=== PATIENT | female | born 1970 | race Caucasian/White ===

== ENCOUNTER 2017-08-04 20:43 | Emergency (ER) | payer MEDICAID, OTHER ==
[~2017-08-04] VITALS: Ht 162.6 cm; Wt 93.5 kg
[~2017-08-04 20:43] MED LIST: HYDR-902 PO; HYDR-906 PO; IBUP-1542 PO
[2017-08-04 21:44] VITALS: Ht 162.6 cm; Wt 93.5 kg
[2017-08-04 23:04] VITALS: BP 173/109
[2017-08-05] MEDS ORDERED: HYDROCODONE/APAP (10/325) TAB PO ONE
--- NOTE | 2017-08-05 00:55 | ERD ---
ER Documentation Chief Complaint Date/Time DATE: 08/05/17 TIME: 00:54 Chief Complaint L foot pain since Friday; last week pt stepped on grnddtr's toy HPI 46-year-old female with left foot pain since Friday. She said she stepped on her granddaughter's toy sick 5 days ago. Foot pain is getting progressively worse. Denies any direct trauma. Complains of pain in her heel and her plantar area. Pain is mild to moderate in intensity with no exacerbating or alleviating factors other than movement and rest. ROS All systems reviewed and are negative except as per history of present illness. Medications Home Meds Active Scripts Hydrocodone/Acetaminophen ([place] 5-325 Tablet) 1 Each Tablet, 1 TAB PO Q6H Y for PAIN, #7 TAB Prov:CLARI WALKER MD 08/24/16 Hydrocodone/Acetaminophen ([place] 10-325 Tablet) 1 Each Tablet, 1 TAB PO Q6H Y for PAIN, #7 TAB Prov:CLARI WALKER MD 08/24/16 Ibuprofen* (Motrin*) 600 Mg Tab, 600 MG PO Q6H Y for PAIN AND OR ELEVATED TEMP, #30 TAB Prov:CLARI WALKER MD 08/24/16 Reported Medications [None] No Conflict Check 11/12/10 Allergies Allergies: Coded Allergies: morphine (Verified Allergy, Mild, SHORTNESS OF BREATHE, 09/08/11) PMhx/Soc Medical and Surgical Hx: pt denies Medical Hx History of Surgery: Yes (GALLBLADDER) Anesthesia Reaction: No Hx Neurological Disorder: No Hx Respiratory Disorders: No Hx Cardiac Disorders: No Hx Psychiatric Problems: No Hx Miscellaneous Medical Probl: No Hx Alcohol Use: No Hx Substance Use: No Hx Tobacco Use: No Smoking Status: Never smoker Physical Exam Vitals Vital Signs Date Time Temp Pulse Resp B/P Pulse Ox O2 Delivery O2 Flow Rate FiO2 08/04/17 23:04 173/109 08/04/17 21:44 99.4 88 20 199/107 100 Physical Exam Const: [] Head: Atraumatic Eyes: Normal Conjunctiva ENT: Normal External Ears, Nose and Mouth. Neck: Full range of motion..~ No meningismus. Resp: Clear to auscultation bilaterally Cardio: Regular rate and rhythm, no murmurs Abd: Soft, non tender, non distended. Normal bowel sounds Skin: No petechiae or rashes Back: No midline or flank tenderness Ext: No cyanosis, or edema Neur: Awake and alert Psych: Normal Mood and Affect Results 24 hrs Current Medications Medications (Trade) Dose Ordered Sig/Saul Route PRN Reason Start Time Stop Time Status Last Admin Dose Admin Hydralazine HCl (Apresoline) 50 mg ONCE ONCE PO 08/04/17 23:30 08/04/17 23:31 DC 08/05/17 00:17 Acetaminophen/ Hydrocodone Bitart ([place] ()) 1 tab ONCE ONCE PO 08/05/17 00:00 08/05/17 00:01 DC 08/04/17 23:40 Procedures/MDM X-ray Foot 3V Interpreted by me: Bones: [No fracture] Joints: [No dislocation] Foreign body: [None] Medical decision-making: Very pleasant patient comes in essentially for a plantar strain. Margarito wrap and crutches applied. Neurovascularly intact post Margarito wrap application. Clinically stable for outpatient management. Patient be discharged home. Departure Diagnosis: Primary Impression: Injury of foot Encounter type: initial encounter Laterality: left Qualified Code: S99.922A - Injury of left foot, initial encounter Condition: Stable BENJAMIN GRIJALVA Aug 05, 2017 00:55
[2017-08-05] MEDS ORDERED: HYDR-3671 PO (00:56)
[2017-08-05] MEDS ORDERED: HYDR-902 PO (00:56)
[2017-08-05] MEDS ORDERED: HYDR12.58 PO (01:18)
[2017-08-05] MEDS ORDERED: LOSA50TA6 PO (01:18)
--- NOTE | 2017-08-05 01:20 | RADRPT ---
PROCEDURE: X-ray left foot CLINICAL INDICATION: Left foot pain TECHNIQUE: 3 views left foot COMPARISON: None FINDINGS: No acute fracture or dislocation. Plantar and posterior dorsal calcaneal enthesophytes. Soft tissues unremarkable. IMPRESSION: No acute fracture. RPTAT: [facility] Physician Norma Date Time Electronically viewed and signed by Physician Norma on 08/05/2017 01:19 RS/
== END 2017-08-05 00:59 | disposition home or self-care (01) ==
LOC: E/R 20:43
DX: S99.922A Unspecified injury of left foot, initial encounter (principal); W22.8XXA Striking against or struck by other objects, initial encounter; Y92.9 Unspecified place or not applicable
CPT/HCPCS: 73630; Z7502; Z7610

== ENCOUNTER 2019-01-22 20:00 | Emergency (ER) | payer OTHER ==
[~2019-01-22] VITALS: Wt 91.4 kg
[~2019-01-22 20:00] MED LIST changes: +HYDR-3671 PO; +HYDR-3980 PO; -HYDR-902 PO; -HYDR-906 PO; +HYDR12.58 PO; +LOSA50TA14 PO
[2019-01-22 20:34] VITALS: BP 163/82; PULSE 65; RESP 18
[2019-01-23] MEDS ORDERED: KETOROLAC 30 MG INJ IM STA (00:23)
--- NOTE | 2019-01-23 00:23 | ERD ---
ER Documentation Chief Complaint Chief Complaint L HIP/THIGH/KNEE PAIN X'S 3 DAYS; DENIES TRAUMA HPI This is a 48-year-old female presents here in emergency department with complaints of left hip pain that dates left lower extremity. Stated that he fell a year ago, landed on her left knee with negative results from her PCP. LMP: Stated that it was a year ago. A0. Denies headache, head injury, loss of consciousness, dizziness, neck pain, neck stiffness, throat pain, difficulty swallowing, difficulty breathing lying flat, shoulder pain, chest pain, back pain, abdominal pain, nausea, vomiting, constipation, diarrhea, urinary symptoms, or possibility being , loss of bowel and bladder control, trauma, injury, falls, difficulty walking due to pain, numbness or tingling sensation, calf pain, recent travel, recent major surgery in the last 3 weeks, calf pain, recent long travel, recent exposure to any illness, recent antibiotic use in the last 3 months, fever, chills, seizures. Past medical history: Surgical history: Cholecystectomy. Social: Denies smoking, use of alcoholic beverages, use of illegal drugs. ROS All systems reviewed and are negative except as per history of present illness. Medications Home Meds Active Scripts Prednisone* (Prednisone*) 20 Mg Tab, 40 MG PO DAILY for 4 Days, TAB Prov:ASHLYN QUINN 01/23/19 Ibuprofen* (Motrin*) 800 Mg Tab, 800 MG PO Q6H PRN for PAIN AND OR ELEVATED TEMP, #30 TAB Prov:ASHLYN QUINN 01/23/19 Tramadol HCl (Tramadol HCl) 50 Mg Tablet, 50 MG PO Q4 PRN for SEVERE PAIN LEVEL 7-10, #4 TAB Prov:ASHLYN QUINN F 01/23/19 Nitrofurantoin Monohyd Macrocr* (Macrobid*) 100 Mg Capsr, 100 MG PO BID for 7 Days, CAP Prov:ASHLYN QUINN F 01/23/19 Hydralazine Hcl* (Hydralazine Hcl*) 25 Mg Tab, 25 MG PO Q6H PRN for ELEVATED BLOOD PRESSURE, #60 TAB Prov:BENJAMIN GRIJALVA 08/05/17 Hydrocodone/Acetaminophen ([place] 10-325 Tablet) 1 Each Tablet, 1 TAB PO Q6H PRN for PAIN, #20 TAB Prov:BENJAMIN GRIJALVA 08/05/17 Ibuprofen* (Motrin*) 600 Mg Tab, 600 MG PO Q6H PRN for PAIN AND OR ELEVATED TEMP, #30 TAB Prov:CLARI WALKER MD 08/24/16 Reported Medications Hydrochlorothiazide* (Hydrochlorothiazide*) 12.5 Mg Tablet, 12.5 MG PO BID, #60 TAB 08/05/17 Losartan Potassium* (Losartan Potassium*) 50 Mg Tablet, 50 MG PO DAILY, TAB 08/05/17 [None] No Conflict Check 11/12/10 Allergies Allergies: Coded Allergies: morphine (Verified Allergy, Mild, SHORTNESS OF BREATHE, 09/08/11) PMhx/Soc History of Surgery: Yes (GALLBLADDER) Anesthesia Reaction: No Hx Neurological Disorder: No Hx Respiratory Disorders: No Hx Cardiac Disorders: No Hx Psychiatric Problems: No Hx Miscellaneous Medical Probl: No Hx Alcohol Use: No Hx Substance Use: No Hx Tobacco Use: No Physical Exam Vitals Physical Exam Const: No acute distress Head: Atraumatic Eyes: Normal Conjunctiva ENT: Normal External Ears, Nose and Mouth. Neck: Full range of motion. No meningismus. Resp: Clear to auscultation bilaterally Cardio: Regular rate and rhythm, no murmurs Abd: Soft, non tender, non distended. Normal bowel sounds Skin: No petechiae or rashes Back: No midline or flank tenderness. No CVA tenderness. Ext: No cyanosis, or edema. Bilateral hips: Good and full range of motion. No redness. No signs of septic joint. Positive left straight leg test. No calf tenderness bilaterally. No saddle anesthesia. No neurovascular deficit. Ambulatory with steady gait. Neur: Awake and alert. Romberg test negative. No neurological deficit. Psych: Normal Mood and Affect Results 24 hrs Laboratory Tests Test 01/23/19 00:31 01/23/19 00:33 Bedside Urine pH (LAB) 6.0 Bedside Urine Protein (LAB) Negative Bedside Urine Glucose (UA) Negative Bedside Urine Ketones (LAB) Negative Bedside Urine Blood Negative Bedside Urine Nitrite (LAB) Negative Bedside Urine Leukocyte Esterase (L 1+ POC Beta HCG, Qualitative NEGATIVE Current Medications Medications Dose Sig/Saul Start Time Status Last (Trade) Ordered Route PRN Stop Time Admin Dose Reason Admin Ketorolac 30 mg ONCE STAT 01/23/19 DC 01/23/19 Tromethamine IM 00:23 00:41 (Toradol) 01/23/19 00:25 1 tab ONCE ONCE 01/23/19 DC 01/23/19 Acetaminophen PO 00:30 00:32 / 01/23/19 00:31 Hydrocodone Bitart ([place] ()) Procedures/MDM Diagnostic tests: POC urine : Negative. POC urine dipstick: Reviewed. X-ray bilateral hips: No acute fracture. Treatment: Toradol IM. Martin p.o. Re-evaluation: Denies pain. No saddle anesthesia. No neurovascular deficit. Ambulatory with steady gait. No neurological deficits. Stated that she feels much better at this time and that she is ready to go home. Differential diagnosis I have low suspicion for pancreatitis, cholecystitis, diverticulitis, diverticulitis with abscess, appendicitis, mesenteric ischemia, ovarian torsion, ovarian cyst rupture, polynephritis, septic stone, obstructing kidney stone, AAA, cauda equina syndrome, DVT, compartment syndrome, septic joint, septic bursitis. Final diagnosis: Chronic back pain. Sciatica. Prescription: Tramadol. Motrin. Follow-up with PCP in the next 24-48 hours. Follow-up with pain specialist in the next 24-48 hours. Come back here in the emergency department for any new symptoms or any worsening symptoms. All questions and concerns were answered. Patient and family members verbalized understanding and agreed with plan of care. Hemodynamically stable on discharge. Departure Diagnosis: Primary Impression: Chronic pain Additional Impression: Sciatica Condition: Stable Additional Instructions: Follow-up with PCP in the next 24-48 hours. Follow-up with pain specialist in the next 24-48 hours. Come back here in the emergency department for any new symptoms or any worsening symptoms. ASHLYN QUINN Jan 23, 2019 00:23
[2019-01-23] MEDS ORDERED: HYDROCODONE/APAP (10/325) TAB PO ONE (00:30)
[2019-01-23] MEDS ORDERED: NITR-58 PO (01:58)
[2019-01-23] MEDS ORDERED: IBUP800T48 PO (01:59)
[2019-01-23] MEDS ORDERED: PRED20TA PO (01:59)
[2019-01-23] MEDS ORDERED: TRAM50TA2 PO (01:59)
== END 2019-01-23 02:08 | disposition home or self-care (01) ==
LOC: FTE 20:00
DX: M54.42 Lumbago with sciatica, left side (principal); G89.29 Other chronic pain
CPT/HCPCS: 73520; 81003; 81025; 96372; J1885; Z7502; Z7610

== ENCOUNTER 2019-05-21 09:50 | Emergency (ER) | payer OTHER ==
[~2019-05-21] VITALS: Ht 162.6 cm; Wt 93.8 kg
[~2019-05-21 09:50] MED LIST changes: +IBUP800T48 PO; +NITR-58 PO; +PRED20TA PO; +TRAM50TA2 PO
[2019-05-21 09:54] VITALS: BP 163/110; PULSE 89; RESP 17; Ht 162.6 cm; Wt 93.8 kg
--- NOTE | 2019-05-21 11:21 | ERD ---
ER Documentation Chief Complaint Chief Complaint LEFT WRIST PAIN, THUMB PAIN X2 WEEKS, NO INJURY HPI Patient is a 48 years old female with past medical history of hypertension controlled with diet presenting to the clinic for left lateral wrist pain X 3 weeks. Patient reports she injured her wrist while trying to clean her bathroom when she slipped and slammed her wrist onto the bathtub. Patient admits to being evaluated by an urgent care who prescribed her naproxen with a negative wrist x-ray result. Patient initially used a wrist guard but stopped using it once the urgent care told her there was no signs of fracture. She reports that she continues to use a wrist for daily activities which has worsened over days. She reports pain has worsened on her left wrist and is now complaining of left thumb pain with difficulty flexing. Patient reports left thumb pain is worse in the morning and makes it difficult for her to do every day daily tasks like tying her hair, washing dishes, putting on clothes, tying her shoelaces. Patient admits to using fan member for assistance for daily activities. Patient is concerned and is requesting imaging of her left wrist. ROS All systems reviewed and are negative except as per history of present illness. Medications Home Meds Active Scripts Prednisone* (Prednisone*) 20 Mg Tab, 40 MG PO DAILY for 4 Days, TAB Prov:ASHLYN QUINN 01/23/19 Ibuprofen* (Motrin*) 800 Mg Tab, 800 MG PO Q6H PRN for PAIN AND OR ELEVATED TEMP, #30 TAB Prov:ASHLYN QUINN 01/23/19 Tramadol HCl (Tramadol HCl) 50 Mg Tablet, 50 MG PO Q4 PRN for SEVERE PAIN LEVEL 7-10, #4 TAB Prov:ASHLYN QUINN 01/23/19 Nitrofurantoin Monohyd Macrocr* (Macrobid*) 100 Mg Capsr, 100 MG PO BID for 7 Days, CAP Prov:ASHLYN QUINN 01/23/19 Hydralazine Hcl* (Hydralazine Hcl*) 25 Mg Tab, 25 MG PO Q6H PRN for ELEVATED BLOOD PRESSURE, #60 TAB Prov:BENJAMIN GRIJALVA 08/05/17 Hydrocodone/Acetaminophen ([place] 10-325 Tablet) 1 Each Tablet, 1 TAB PO Q6H PRN for PAIN, #20 TAB Prov:BENJAMIN GRIJALVA 08/05/17 Ibuprofen* (Motrin*) 600 Mg Tab, 600 MG PO Q6H PRN for PAIN AND OR ELEVATED TEMP, #30 TAB Prov:CLARI WALKER MD 08/24/16 Reported Medications Hydrochlorothiazide* (Hydrochlorothiazide*) 12.5 Mg Tablet, 12.5 MG PO BID, #60 TAB 08/05/17 Losartan Potassium* (Losartan Potassium*) 50 Mg Tablet, 50 MG PO DAILY, TAB 08/05/17 [None] No Conflict Check 11/12/10 Allergies Allergies: Coded Allergies: morphine (Verified Allergy, Mild, SHORTNESS OF BREATHE, 09/08/11) PMhx/Soc History of Surgery: Yes (GALLBLADDER) Anesthesia Reaction: No Hx Neurological Disorder: No Hx Respiratory Disorders: No Hx Cardiac Disorders: Yes Hx Psychiatric Problems: No Hx Miscellaneous Medical Probl: No Hx Alcohol Use: No Hx Substance Use: No Hx Tobacco Use: No Physical Exam Vitals Vital Signs Date Temp Pulse Resp B/P (MAP) Pulse Ox O2 O2 Flow FiO2 Time Delivery Rate 05/21/19 98.0 89 17 163/110 98 09:54 (127) Physical Exam Const: No acute distress Head: Atraumatic Resp: Clear to auscultation bilaterally Cardio: Regular rate and rhythm, no murmurs Psych: Normal Mood and Affect Left Wrist Exam: Tenderness on styloid process of radius. Tenderness of left hallux. Negative snuffbox tenderness. Skin intact. Neurovascular exam intact. Patient was unable to flex her left hallux. Procedures/MDM Patient was seen and evaluated for persistent left wrist pain without complications. Patient denied pain management in ED stating that she will take her naproxen. Left wrist x-ray revealed Soft tissue swelling without evidence of acute fracture or dislocation. Mild degenerative joint disease at the thumb carpometacarpal joint Patient stable ready for discharge. Follow-up with PCP for further evaluation. Patient denied treatment in ED stating that she will continue taking her naproxen and tramadol given to her by the urgent care. Patient was advised to continue wearing wrist guard and avoid scheduled for left hand/wrist. Patient was advised to evaluate for arthritis versus rheumatoid arthritis. Ice application. Departure Diagnosis: Primary Impression: Pain in wrist Laterality: left Qualified Codes: M25.532 - Pain in left wrist Condition: Stable Patient Instructions: Wrist Sprain Referrals: [facility] Additional Instructions: Patient advised to return to the ED immediately for new or worsening symptoms. Patient advised to follow up with primary care provider in the next 24-48 hours. Patient verbalized understanding and agrees with treatment plan and course of action. If patient has no primary care they may follow up with [facility] [address] [place] [id number] or [facility] [address] [place] [address] [address] [facility] [address] [place] [address] ZACKARY ALCANTARA PA-C May 21, 2019 11:21
== END 2019-05-21 12:13 | disposition home or self-care (01) ==
LOC: FTE 09:50
DX: M25.532 Pain in left wrist (principal); I10 Essential (primary) hypertension
CPT/HCPCS: 73110; Z7502